=== PATIENT | female | born 1955 | race Caucasian/White ===

== ENCOUNTER 2019-10-31 07:03 | Observation (INO) | payer OTHER, MEDICARE ==
[2019-10-31 07:24] VITALS: BMI 20.8
--- NOTE | 2019-10-31 07:41 | PDOC ---
History of Present Illness - General Stated Complaint: AMS Time Seen by Provider: 10/31/19 07:09 History Source: Patient Exam Limitations: No Limitations - History of Present Illness Initial Comments: 10/31/19 07:21 64 yo female pmh HTN, HLD and GERD presents to the ED from home via EMS for AMS. EMS state pt reports last known well 10 pm last night prior to sleeping, pt found around 6 am in bed drooling, attempted to arouse, pt eyes opened but was not following commands or speaking. EMS on the scene report similar symptoms (vitals noted to be WNL at this time) that resolved after 5 min. At baseline pt is AOX3 and fully functional, noted to be AOX2 at this time (oriented to person and place, not time). Pt denies any focal neurological deficits, denies CHANDRA, LOC, changes in vision/speech, N/V, incontinence, tongue bitting NIH Stroke Scale - Last Known Well Date/Time & Onset Date Last Known Well: 10/30/19 Time Last Known Well: 22:00 - Initial Evaluation Level of consciousness: Alert Ask patient the month and their age: Answers one correctly Ask patient to open & close eyes; make fist and let go: Obeys both correctly Best gaze (horizontal eye movement): Normal Visual field testing: No visual field loss Facial paresis (Show teeth/raise eyebrows/close eyes tight): Normal symmetrical movement Motor Function: Left Arm: Normal Motor Function: Right Arm: Normal (extends arm 90 (or 45) degrees for 10 seconds without drift Motor Function: Left Leg: Normal (extends leg 30 degrees for 5 seconds without drift) Motor Function: Right Leg: Normal (extends leg 30 degrees for 5 seconds without drift) Limb Ataxia: No ataxia Sensory(Use pinprick test arms,legs,trunk,face/side to side): Normal Best language (Describe picture, name items, read sentences): No Aphasia Dysarthria (read several words): Normal articulation Extinction and Inattention: No abnormality - Total Score NIH Stroke Scale Score: 1 Past History - Medical History Allergies/Adverse Reactions: Allergies Allergy/AdvReac Type Severity Reaction Status Date / Time No Known Allergies Allergy Unverified 06/01/12 10:20 Home Medications: Ambulatory Orders Metoprolol Succinate 25 mg PO DAILY 10/31/19 Omeprazole 40 mg PO BID 10/31/19 Rosuvastatin [Crestor -] 5 mg PO HS 10/31/19 Anemia: No COPD: No Diabetes: No Disorders: No - Psycho-Social/Smoking History Smoking Status: No Smoking History: Never smoked Number of Cigarettes Smoked Daily: 0 Review of Systems - Review of Systems Constitutional: No: Chills, Fever Respiratory: No: Shortness of Breath Cardiac (ROS): No: Chest Pain ABD/GI: No: Constipated, Diarrhea, Nausea, Vomiting : No: Dysuria, Discharge, Frequency, Flank Pain Neurological: Yes: Weakness (generalized). No: Headache, Numbness, Paresthesia *Physical Exam - Physical Exam General Appearance: Yes: Nourished, Appropriately Dressed. No: Apparent Distress HEENT: positive: EOMI, GISELA, Normal ENT Inspection Neck: positive: Supple. negative: Carotid bruit Respiratory/Chest: positive: Lungs Clear. negative: Respiratory Distress, Accessory Muscle Use, Rapid RR, Crackles, Rales, Rhonchi, Stridor, Wheezing Cardiovascular: positive: Regular Rhythm, Regular Rate, S1, S2. negative: Edema, JVD, Murmur Vascular Pulses: Dorsalis-Pedis (R): 4+, Doralis-Pedis (L): 4+ Gastrointestinal/Abdominal: positive: Flat, Soft. negative: Pulsatile Mass Musculoskeletal: negative: CVA Tenderness Extremity: positive: Normal Capillary Refill, Normal Inspection, Normal Range of Motion Integumentary: positive: Normal Color, Dry, Warm Neurologic: positive: card brusher II-XII NML intact, Alert, Normal Mood/Affect, Normal Response, Motor Strength 5/5. negative: Fully Oriented (AOX2, baseline AOX3), Facial Droop, Sensory Deficit, Confused, Disoriented ED Treatment Course - LABORATORY CBC & Chemistry Diagram: 10/31/19 07:18 10/31/19 07:18 - RADIOLOGY Radiology Studies Ordered: Category Date Time Status HEAD CT WITHOUT CONTRAST [CT] Stat CT Scan 10/31/19 07:10 Ordered Medical Decision Making - Medical Decision Making 10/31/19 09:33 64 yo female pmh HTN, HLD and GERD presents to the ED from home via EMS for AMS. EMS state pt reports last known well 10 pm last night prior to sleeping, pt found around 6 am in bed drooling, attempted to arouse, pt eyes opened but was not following commands or speaking. EMS on the scene report similar symptoms (vitals noted to be WNL at this time) that resolved after 5 min. At baseline pt is AOX3 and fully functional, noted to be AOX2 at this time (oriented to person and place, not time). Pt denies any focal neurological deficits, denies CHANDRA, LOC, changes in vision/speech, N/V, incontinence, tongue bitting Vitals stable Pt outside the window on arrival for TPA No focal deficits. EKG and finger stick done immediately, pt then taken straight to CT Neg CT head labs unremarkable Due to likely first seizure vs stroke, pt requires admission for Neuro eval and continued monitoring Dr. Villagran aware, pt accepted for admission Discharge - Discharge Information Problems reviewed: Yes Clinical Impression/Diagnosis: Seizure Syncope Qualifiers: Syncope type: unspecified Qualified Code(s): R55 - Syncope and collapse Condition: Good Disposition: HOME - Admission Yes - Follow up/Referral - Patient Discharge Instructions - Post Discharge Activity
[2019-10-31 07:44] LABS: BASO % 0.5 % (0-2.0); HEMATOCRIT 38.2 % (32.4-45.2); LYMPH % 34.4 % (8-40); MCHC 33.9 g/dl (32.0-36.0); MEAN CELL VOLUME 85.6 fl (80-96); MEAN PLT VOLUME 8.6 fl (7.5-11.1); MONO % 7.7 % (3.8-10.2); NEUT % 56.4 % (42.8-82.8); PLATELET COUNT 204 K/MM3 (134-434); RBC 4.46 M/mm3 (3.60-5.2); RDW 13.4 % (11.6-15.6); WHITE BLOOD COUNT 5.5 K/mm3 (4.0-10.0)
[2019-10-31 08:15] LABS: ALBUMIN 4.1 g/dl (3.4-5.0); ALK PHOS 85 U/L (45-117); ANION GAP 9 MMOL/L (8-16); BILIRUBIN,TOTAL 0.5 mg/dL (0.2-1); BLOOD UREA NITROGEN 17.8 mg/dL (7-18); CALCIUM 9.1 mg/dL (8.5-10.1); CHLORIDE 107 mmol/L (98-107); CO2 25 mmol/L (21-32); CREATININE 0.7 mg/dL (0.55-1.3); GLUCOSE,RANDOM 120 mg/dL (74-106); POTASSIUM 4.1 mmol/L (3.5-5.1); SGOT/AST 30 U/L (15-37); SGPT/ALT 36 U/L (13-61); SODIUM 141 mmol/L (136-145)
[2019-10-31 08:26] LABS: INR 0.93 (0.83-1.09)
[2019-10-31 08:29] LABS: ACTIVATED PTT 25.4 SECONDS (25.2-36.5)
--- NOTE | 2019-10-31 08:53 | PDOC ---
Attending Attestation - Resident Resident Name: ShoshanaIno - ED Attending Attestation I have performed the following: I have examined & evaluated the patient, The case was reviewed & discussed with the resident, I agree w/resident's findings & plan, Exceptions are as noted - HPI HPI: 10/31/19 08:49 64-year-old female history of hypertension here today complaining of altered mental status. Patient is unable to recall the events of the last 24 hours therefore history is provided by her per her the patient was last normal last evening around 10 PM when she went to bed this a.m. they were in bed and she was noted to be shaking did have some eyes rolling and grunting noise he rolled over to see what was going on and found that she was then unarousable and very confused and there was no noted incontinence of stool or urine. Called EMS on EMS arrival patient was also found to be somewhat confused and lethargic at this time the patient is awake alert and speaking states she does not remember any of the events mentioned. Denies any history of heavy alcohol use no new medications no drug use no recent fevers chills no urinary complaints no abdominal pain no nausea no vomiting no headaches no other symptoms no previous history of prior seizures or stroke and no recent head trauma - Physicial Exam PE: 10/31/19 08:50 Patient is awake alert and oriented x3 faces are symmetric lungs are clear bilaterally heart is regular without murmurs rubs or gallops abdomen is soft and nontender extremities are warm and well perfused. Neurologically patient is awake and alert and oriented x3 strength is 5 out of 5 in all 4 extremities speech is clear she is able to recall her age and the date sensation is intact gait was not tested NIH stroke scale is currently 0 on my exam - Medical Decision Making 10/31/19 08:51 64-year-old female history of hypertension here today with possible seizure versus syncope and altered mental status. With some amnesia differential includes intracranial mass, bleed, CVA, infection such as UTI or pneumonia however the patient is afebrile. Electrolyte abnormality such as hyponatremia hypocalcemia is considered. Patient denies any toxicological causes for a potential seizure. Plan CBC CMP total CK troponin EKG CT head and chest x-ray as well as UA to rule out infection. CT head is unremarkable for any acute mass bleed or CVA. Will consult neurology for new onset likely seizure patient will be admitted for monitoring Heart Score/ECG Review #1 General ECG Interpretation: Sinus Rhythm, Normal Rate (93. no st elevation or depression), Normal Intervals, No acute ischemic changes Discharge - Discharge Information Problems reviewed: Yes Clinical Impression/Diagnosis: Seizure Syncope Qualifiers: Syncope type: unspecified Qualified Code(s): R55 - Syncope and collapse - Follow up/Referral - Patient Discharge Instructions - Post Discharge Activity
[2019-10-31 09:08] LABS: PH,URINE 5.5 (5.0-8.0); URINE APPEARANCE Clear; URINE BILIRUBIN Negative (NEGATIVE); URINE COLOR Yellow; URINE GLUCOSE (UA) Negative (NEGATIVE); URINE KETONE Negative (NEGATIVE); URINE LEUK ESTERASE Negative (NEGATIVE); URINE NITRITE Negative (NEGATIVE); URINE PROTEIN 1+ (NEGATIVE); URINE UROBILINOGEN 0.2 mg/dL (0.2-1.0)
--- NOTE | 2019-10-31 09:14 | EKG ---
Test Reason : Blood Pressure : / mmHG Vent. Rate : 093 BPM Atrial Rate : 093 BPM P-R Int : 142 ms QRS Dur : 078 ms QT Int : 350 ms P-R-T Axes : 068 039 066 degrees QTc Int : 435 ms NORMAL SINUS RHYTHM NONSPECIFIC ST ABNORMALITY ABNORMAL ECG WHEN COMPARED WITH ECG OF 21-JUN-2008 10:45, QT HAS LENGTHENED Confirmed by RADHA KAN MD ([id number]) on 10/31/2019 9:14:00 AM Referred By: Confirmed By:RADHA KAN MD
--- NOTE | 2019-10-31 12:03 | CON.CARD ---
Consult Consult Specialty:: Cardiology Referred by:: Emergency Medicine Reason for Consultation:: Altered mental status, r/o stroke vs seizure - History of Present Illness Chief Complaint: Altered mental status History of Present Illness: 64 yo female pmh HTN, HLD and GERD presents to the ED from home via EMS for AMS. EMS state pt reports last known well 10 pm last night prior to sleeping, pt found around 6 am in bed drooling, biting tongue, attempted to arouse, pt eyes opened but was not following commands or speaking, denies bowel or bladder incontinence. EMS on the scene report similar symptoms (vitals noted to be WNL at this time) that resolved after 5 min. At baseline pt is AOX3 and fully functional, noted to be AOX2 at this time (oriented to person and place, not time). Pt denies any focal neurological deficits, denies CHANDRA, LOC, changes in vision/speech, N/V, incontinence. 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: Yes: Migraine - Alcohol/Substance Use Hx Alcohol Use: No - Smoking History Smoking history: Never smoked Have you smoked in the past 12 months: No Aproximately how many cigarettes per day: 0 Home Medications - Allergies Allergies/Adverse Reactions: Allergies Allergy/AdvReac Type Severity Reaction Status Date / Time No Known Allergies Allergy Unverified 06/01/12 10:20 - Home Medications Home Medications: Ambulatory Orders Metoprolol Succinate 25 mg PO DAILY 10/31/19 Omeprazole 40 mg PO BID 10/31/19 Rosuvastatin [Crestor -] 5 mg PO HS 10/31/19 Review of Systems - Review of Systems Neurological: reports: Confusion Vital Signs: Vital Signs Temperature 98.5 F 10/31/19 07:20 Pulse Rate 88 10/31/19 07:20 Respiratory Rate 20 10/31/19 07:20 Blood Pressure 139/81 10/31/19 07:20 O2 Sat by Pulse Oximetry (%) 97 10/31/19 07:20 Constitutional: Yes: No Distress, Calm Neck: Yes: Supple Respiratory: Yes: Regular, CTA Bilaterally Gastrointestinal: Yes: Normal Bowel Sounds, Soft Cardiovascular: Yes: Regular Rate and Rhythm JVD: No Carotid Bruit: No Heart Sounds: Yes: S1, S2 Edema: No - Other Data Labs, Other Data: CBC, BMP 10/31/19 07:18 10/31/19 07:18 INR, PTT INR 0.93 (0.83-1.09) 10/31/19 07:18 Troponin, BNP 10/31/19 07:18 Troponin I < 0.02 Troponin, BNP 10/31/19 07:18 Troponin I < 0.02 NSR @ 93 Ejection Fraction %: LVEF > or = 40 % Imaging - Results Cat Scan: Report Reviewed (HCT: No acute changes) Problem List - Problems (1) Mitral valve prolapse Code(s): I34.1 - NONRHEUMATIC MITRAL (VALVE) PROLAPSE (2) Hyperlipidemia Code(s): E78.5 - HYPERLIPIDEMIA, UNSPECIFIED Qualifiers: Hyperlipidemia type: pure hypercholesterolemia Qualified Code(s): E78.00 - Pure hypercholesterolemia, unspecified; E78.0 - Pure hypercholesterolemia (3) Seizure Code(s): R56.9 - UNSPECIFIED CONVULSIONS (4) Syncope Code(s): R55 - SYNCOPE AND COLLAPSE Qualifiers: Syncope type: unspecified Qualified Code(s): R55 - Syncope and collapse Assessment/Plan 1. AMS r/o acute stroke vs seizure 2. HTN 3. Hyperlipidemia 4. GERD 5. MVP syndrome P:1. Neuro input appreciated 2. Continue Toprol XL 12.5 qd, Crestor 5 qd 3. Thank you for consultative opportunity
--- NOTE | 2019-10-31 12:56 | CONSULT ---
Consult - text type - Consultation Consultation Note: Neurology History of Present Illness Stated Complaint: AMS - History of Present Illness 64 yo female pmh HTN, HLD and GERD presents to the ED from home via EMS for AMS. EMS state pt reported last known well 10 pm last night prior to sleeping, pt found around 6 am in bed drooling, attempted to arouse, pt eyes opened but was not following commands or speaking. EMS on the scene report similar symptoms (vitals noted to be WNL at this time) that resolved after 5 min. At baseline pt is AOX3 and fully functional, noted to be AOX2 at this time (oriented to person and place, not time). Pt denies any focal neurological deficits, denies CHANDRA, LOC, changes in vision/speech, N/V, incontinence, tongue bitting. Although CVA was a concern, symptoms suspicious for seizure-like event. Patient does not have any prior history of seizures, unlikely new onset to occur now. During my evaluation she was completely at baseline and normal without any cognitive difficulties. was with her at bedside and confirm this as well. Noncontrast head CT reviewed and discussed in detail and without any acute changes. patient admitted for further observation and if no events overnight, then can be discharged in the morning, can follow-up with me in the office (sees Dr. Engel in same office). Past History - Medical History Allergies/Adverse Reactions: Allergies Allergy/AdvReac Type Severity Reaction Status Date / Time No Known Allergies Allergy Unverified 06/01/12 10:20 Home Medications: Ambulatory Orders Metoprolol Succinate 25 mg PO DAILY 10/31/19 Omeprazole 40 mg PO BID 10/31/19 Rosuvastatin [Crestor -] 5 mg PO HS 10/31/19 Anemia: No COPD: No Diabetes: No Disorders: No - Psycho-Social/Smoking History Smoking Status: No Smoking History: Never smoked Number of Cigarettes Smoked Daily: 0 Review of Systems - Review of Systems Constitutional: No: Chills, Fever Respiratory: No: Shortness of Breath Cardiac (ROS): No: Chest Pain ABD/GI: No: Constipated, Diarrhea, Nausea, Vomiting : No: Dysuria, Discharge, Frequency, Flank Pain Neurological: Yes: Weakness (generalized). No: Headache, Numbness, Paresthesia *Physical Exam Vital Signs Period Temp Pulse Resp BP Sys/Collins Pulse Ox Last 24 Hr 98.5 F-98.7 F 76-88 18-20 132-139/81-88 97-100 - Physical Exam General Appearance: Yes: Nourished, Appropriately Dressed. No: Apparent Distress HEENT: positive: EOMI, GISELA, Normal ENT Inspection Neck: positive: Supple. negative: Carotid bruit Respiratory/Chest: positive: Lungs Clear. negative: Respiratory Distress, Accessory Muscle Use, Rapid RR, Crackles, Rales, Rhonchi, Stridor, Wheezing Cardiovascular: positive: Regular Rhythm, Regular Rate, S1, S2. negative: Edema, JVD, Murmur Vascular Pulses: Dorsalis-Pedis (R): 4+, Doralis-Pedis (L): 4+ Gastrointestinal/Abdominal: positive: Flat, Soft. negative: Pulsatile Mass Musculoskeletal: negative: CVA Tenderness Extremity: positive: Normal Capillary Refill, Normal Inspection, Normal Range of Motion Integumentary: positive: Normal Color, Dry, Warm Neurologic: positive: family independence case manager II-XII NML intact, Alert, Normal Mood/Affect, Normal Response, Motor Strength 5/5. negative: Fully Oriented (AOX2, baseline AOX3), Facial Droop, Sensory Deficit, Confused, Disoriented CBCD WBC 5.5 K/mm3 (4.0-10.0) 10/31/19 07:18 RBC 4.46 M/mm3 (3.60-5.2) 10/31/19 07:18 Hgb 13.0 GM/dL (10.7-15.3) 10/31/19 07:18 Hct 38.2 % (32.4-45.2) 10/31/19 07:18 MCV 85.6 fl (80-96) 10/31/19 07:18 MCHC 33.9 g/dl (32.0-36.0) 10/31/19 07:18 RDW 13.4 % (11.6-15.6) 10/31/19 07:18 Plt Count 204 K/MM3 (134-434) 10/31/19 07:18 MPV 8.6 fl (7.5-11.1) 10/31/19 07:18 CMP Sodium 141 mmol/L (136-145) 10/31/19 07:18 Potassium 4.1 mmol/L (3.5-5.1) 10/31/19 07:18 Chloride 107 mmol/L (98-107) 10/31/19 07:18 Carbon Dioxide 25 mmol/L (21-32) 10/31/19 07:18 Anion Gap 9 MMOL/L (8-16) 10/31/19 07:18 BUN 17.8 mg/dL (7-18) 10/31/19 07:18 Creatinine 0.7 mg/dL (0.55-1.3) 10/31/19 07:18 Calcium 9.1 mg/dL (8.5-10.1) 10/31/19 07:18 Total Bilirubin 0.5 mg/dL (0.2-1) 10/31/19 07:18 AST 30 U/L (15-37) 10/31/19 07:18 ALT 36 U/L (13-61) 10/31/19 07:18 Alkaline Phosphatase 85 U/L (45-117) 10/31/19 07:18 Total Protein 7.0 g/dl (6.4-8.2) 10/31/19 07:18 Albumin 4.1 g/dl (3.4-5.0) 10/31/19 07:18 Medical Decision Making 64 yo female pmh HTN, HLD and GERD presents to the ED from home via EMS for AMS. EMS state pt reported last known well 10 pm last night prior to sleeping, pt found around 6 am in bed drooling, attempted to arouse, pt eyes opened but was not following commands or speaking. EMS on the scene report similar symptoms (vitals noted to be WNL at this time) that resolved after 5 min. At baseline pt is AOX3 and fully functional, noted to be AOX2 at this time (oriented to person and place, not time). Pt denies any focal neurological deficits, denies CHANDRA, LOC, changes in vision/speech, N/V, incontinence, tongue bitting. Although CVA was a concern, symptoms suspicious for seizure-like event. Patient does not have any prior history of seizures, unlikely new onset to occur now. During my evaluation she was completely at baseline and normal without any cognitive difficulties. was with her at bedside and confirm this as well. Noncontrast head CT reviewed and discussed in detail and without any acute changes. patient admitted for further observation and if no events overnight, then can be discharged in the morning, can follow-up with me in the office (sees Dr. Engel in same office). Neurologically at baseline, neurologically cleared for discharge in a.m. if no other events overnight. Does not require seizure medication for one-time event significant stress at this time possibly etiology to her event. Increased hydration also recommended.
[2019-10-31] MEDS ORDERED: SODIUM CHLORIDE 1,000 ML IV STA (14:52)
--- NOTE | 2019-10-31 15:24 | HP ---
CHIEF COMPLAINT: s/p seizure-like episode PCP: Dr Engel HISTORY OF PRESENT ILLNESS: 64 F h/o RLS, vertigo, HTN, HLD, migraine headaches presents to ED after an episode of unresponsiveness, and tongue biting earlier this morning. Patient endorses going to bed at 10pm in her [facility], until her tried to wake her up at 6AM when she was unresponsive, with jerking head mvoements, foaming at the mouth and tongue biting, EMS arrived and witnessed the same for 5 more mins. Patient's mother has Parkinson's otherwise pt. denies personal history of any neuro-degenerative diseases. Denies drug/etoh use. Denies prior episodes. Endorses vivid dreams, some snoring (reported by ), had HSAT years ago but denied h/o MEMO/RBD/sleep walking/talking/narcolepsy. Denies sleep paralysis sx. Endorses great amount of stress at home, now retired because her company shut down, now she's taking care of her and grandkids and she endorses it has been very stressful for her, Denies SI/HI/AH/VH/depression. Denies COVID symptoms. ER course was notable for: (1) CT head neg. for acute pathology (2) Labs unremarkable (3) Recent Travel: denies PAST MEDICAL HISTORY: as above PAST SURGICAL HISTORY: denies Social History: denies x3 Allergies No Known Allergies Allergy (Unverified 06/01/12 10:20) HOME MEDICATIONS: Home Medications Medication Instructions Recorded Metoprolol Succinate 25 mg PO DAILY 10/31/19 Omeprazole 40 mg PO BID 10/31/19 Rosuvastatin [Crestor -] 5 mg PO HS 10/31/19 PHYSICAL EXAMINATION Vital Signs - 24 hr 10/31/19 10/31/19 07:20 12:22 Temperature 98.5 F 98.7 F Pulse Rate 88 Pulse Rate [ 76 Left Radial] Respiratory 20 18 Rate Blood Pressure 139/81 Blood Pressure 132/88 [Right Arm] O2 Sat by Pulse 97 100 Oximetry (%) GA Speaks in full sentences, AAOx3, NAD, ambulatory w/ stable gait HEENT NC/aT, EOMI, neck supple, dry MM, no JVD, mild R tongue laceration no bleeding Chest CTAB, nop crackles or wheezing CVS S1, S2+, RRR, no m/r/g Abd Soft, thin, NT, ND, BS+ Ext No LE edema, no calf tenderness Neuro no resting tremor, Cn2-12 grossly intact, normal mood and affect Laboratory Results - last 24 hr 10/31/19 10/31/19 10/31/19 07:18 07:18 07:18 WBC 5.5 RBC 4.46 Hgb 13.0 Hct 38.2 MCV 85.6 MCH 29.0 MCHC 33.9 RDW 13.4 Plt Count 204 MPV 8.6 Absolute Neuts (auto) 3.1 Neutrophils % 56.4 Lymphocytes % 34.4 Monocytes % 7.7 Eosinophils % 1.0 Basophils % 0.5 Nucleated RBC % 0 PT with INR 11.00 INR 0.93 PTT (Actin FS) 25.4 Sodium Potassium Chloride Carbon Dioxide Anion Gap BUN Creatinine Est GFR (CKD-EPI)AfAm Est GFR (CKD-EPI)NonAf POC Glucometer Random Glucose Calcium Total Bilirubin AST ALT Alkaline Phosphatase Creatine Kinase Troponin I Total Protein Albumin Triglycerides 73 Cholesterol 150 Total LDL Cholesterol 57 HDL Cholesterol 85 H Urine Color Urine Appearance Urine pH Ur Specific [place] Urine Protein Urine Glucose (UA) Urine Ketones Urine Blood Urine Nitrite Urine Bilirubin Urine Urobilinogen Ur Leukocyte Esterase 10/31/19 10/31/19 10/31/19 07:18 07:19 08:27 WBC RBC Hgb Hct MCV MCH MCHC RDW Plt Count MPV Absolute Neuts (auto) Neutrophils % Lymphocytes % Monocytes % Eosinophils % Basophils % Nucleated RBC % PT with INR INR PTT (Actin FS) Sodium 141 Potassium 4.1 Chloride 107 Carbon Dioxide 25 Anion Gap 9 BUN 17.8 Creatinine 0.7 Est GFR (CKD-EPI)AfAm 105.38 Est GFR (CKD-EPI)NonAf 90.92 POC Glucometer 116 Random Glucose 120 H Calcium 9.1 Total Bilirubin 0.5 AST 30 ALT 36 Alkaline Phosphatase 85 Creatine Kinase 98 Troponin I < 0.02 Total Protein 7.0 Albumin 4.1 Triglycerides Cholesterol Total LDL Cholesterol HDL Cholesterol Urine Color Yellow Urine Appearance Clear Urine pH 5.5 Ur Specific [place] >= 1.030 Urine Protein 1+ H Urine Glucose (UA) Negative Urine Ketones Negative Urine Blood 1+ H Urine Nitrite Negative Urine Bilirubin Negative Urine Urobilinogen 0.2 Ur Leukocyte Esterase Negative Home Medications Medication Instructions Recorded Metoprolol Succinate 25 mg PO DAILY 10/31/19 Omeprazole 40 mg PO BID 10/31/19 Rosuvastatin [Crestor -] 5 mg PO HS 10/31/19 Current Medications Generic Name Dose Route Start Last Admin Trade Name Freq PRN Reason Stop Dose Admin Sodium Chloride 1,000 mls @ 1,000 mls/hr 10/31/19 14:52 Normal Saline - IV 10/31/19 15:51 ASDIR STA ASSESSMENT/PLAN: 64 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) ?confusional arousal/MEMO/RBD HTN HLD BPPV RLS Migraine headaches Anxiety Plan: Obtain MRI of brain to r/o neurodegenerative process (strong family h/o Parkinson's), ?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 - New Patient This patient is new to me today: Yes Date on this admission: 10/31/19 - Critical Care Critical Care patient: No
[2019-10-31] MEDS ORDERED: SODIUM CHLORIDE 0.9% 1000 ML INFUS.BAG IV ONE (16:36)
[2019-10-31] MEDS ORDERED: PNEUMOC 13-VAL CONJ-DIP CRM/PF 0.5 ML DISP.SYRIN IM ONE (17:18)
[2019-10-31 20:05] LABS: COCAINE, UR NEGATIVE ng/ml (CUTOFF=300); METHADONE, UR NEGATIVE ng/ml (CUTOFF=300); OPIATES, URI NEGATIVE ng/ml (CUTOFF=300); PHENCYCLIDINE,URINE NEGATIVE ng/ml (CUTOFF=25); URINE AMPHETAMINES NEGATIVE ng/ml (CUTOFF=500); URINE BARBITURATES NEGATIVE ng/ml (CUTOFF=200); URINE BENZODIAZEPINES NEGATIVE ng/ml (CUTOFF=200)
[2019-10-31] MEDS ORDERED: SODIUM CHLORIDE 1,000 ML IV SCH (20:30)
--- NOTE | 2019-11-01 06:50 | PN ---
Progress Note (short form) - Note Progress Note: Chief Complaint: Events noted, notes reviewed, resting in bed, does not have any recollection of yesterday's events/altered mental status, denies any chest discomfort, denies any dyspnea History of Present Illness: Seen and examined on telemetry. Events noted, notes reviewed, resting in bed, does not have any recollection of yesterday's events/altered mental status, denies any chest discomfort, denies any dyspnea Patient stated that on Thursday she was stripping paint of a railing with utilization of a chemical to assist with paint stripping, patient stated that it was a hot day and she was not adequately hydrated- possible contribution to the above-noted clinical presentation Medications: Current Medications Generic Name Dose Route Start Last Admin Trade Name Nehemias PRN Reason Stop Dose Admin Sodium Chloride 1,000 mls @ 83 mls/hr 10/31/19 20:30 11/01/19 05:27 Normal Saline - IV 83 mls/hr ASDIR JORGE Administration Pneumococcal 13-Valent Conj Vacc 0.5 ml 10/31/19 17:18 Prevnar 13 Syringe - IM 10/31/19 17:19 .ONCE ONE Review of Systems - Review of Systems Constitutional: denies: Fever or Chills Cardiovascular: As noted above Respiratory: denies: Cough or Sputum Production Gastrointestinal: denies: Nausea, Vomiting, Diarrhea, Constipation, Abdominal Pain Neurological: denies: Headaches Vital Signs: Last Vital Signs Temp Pulse Resp BP Pulse Ox 98.1 F 66 18 135/66 100 11/01/19 05:00 11/01/19 05:00 11/01/19 05:00 11/01/19 05:00 10/31/19 17:44 Intake & Output 10/29/19 10/30/19 10/31/19 11/01/19 23:59 23:59 23:59 23:59 Intake Total 744 Balance 744 Weight 114 lb Neck: Supple Negative JVD No Bruit Respiratory: Clear to auscultation and percussion Cardiovascular: S1 S2 Regular Rate and Rhythm Gastrointestinal: Soft Benign Normal Bowel Sounds Ext: Negative Edema Labs: CBC, BMP 10/31/19 07:18 10/31/19 07:18 Hepatic Panel Total Bilirubin 0.5 mg/dL (0.2-1) 10/31/19 07:18 AST 30 U/L (15-37) 10/31/19 07:18 ALT 36 U/L (13-61) 10/31/19 07:18 Alkaline Phosphatase 85 U/L (45-117) 10/31/19 07:18 Albumin 4.1 g/dl (3.4-5.0) 10/31/19 07:18 INR, PTT INR 0.93 (0.83-1.09) 10/31/19 07:18 Assessment/Plan ASSESSMENT: 1. Altered mental status, clinically resolved etiology of which is unclear- no evidence of acute stroke, differential diagnosis includes seizure disorder, clinically cannot exclude profound hypotension considering the above-noted circumstances 2. History of hypertension/hypertensive cardiovascular disease 3. Hypercholesterolemia 4. History of mitral of redundancy/prolapse syndrome PLAN: 1. No additional cardiovascular evaluation/intervention is indicated at this point 2. Recommend continuation of Toprol-XL therapy/outpatient re-initiation 3. Recommend continuation of Crestor therapy Patient can be discharged home from the cardiovascular point of view and follow- up in our office with Dr. Ahsan Lee M.D.
[2019-11-01 09:17] VITALS: BP 139/73; PULSE 72; TEMP 97.8
--- NOTE | 2019-11-01 09:53 | PN ---
Progress Note (short form) - Note Progress Note: Neurology History of Present Illness Stated Complaint: AMS 64 yo female pmh HTN, HLD and GERD presents to the ED from home via EMS for AMS. EMS state pt reported last known well 10 pm last night prior to sleeping, pt found around 6 am in bed drooling, attempted to arouse, pt eyes opened but was not following commands or speaking. EMS on the scene report similar symptoms (vitals noted to be WNL at this time) that resolved after 5 min. At baseline pt is AOX3 and fully functional, noted to be AOX2 at this time (oriented to person and place, not time). Pt denies any focal neurological deficits, denies CHANDRA, LOC, changes in vision/speech, N/V, incontinence, tongue bitting. Although CVA was a concern, symptoms suspicious for seizure-like event. Patient does not have any prior history of seizures, unlikely new onset to occur now. During my evaluation she was completely at baseline and normal without any cognitive difficulties. was with her at bedside and confirm this as well. Noncontrast head CT reviewed and discussed in detail and without any acute changes. MRI brain completed as well, no signficant abnormalities. Carotid doppler without high grade stenosis. Cards note reviewed. Active Medications Sodium Chloride (Normal Saline -) 1,000 mls @ 83 mls/hr IV ASDIR JORGE Last Admin: 11/01/19 05:27 Dose: 83 mls/hr Documented by: Pneumococcal 13-Valent Conj Vacc (Prevnar 13 Syringe -) 0.5 ml IM .ONCE ONE Stop: 10/31/19 17:19 Vital Signs Period Temp Pulse Resp BP Sys/Collins Pulse Ox Last 24 Hr 97.8 F-98.7 F 66-78 18-20 130-156/66-110 100-100 CBCD WBC 5.5 K/mm3 (4.0-10.0) 10/31/19 07:18 RBC 4.46 M/mm3 (3.60-5.2) 10/31/19 07:18 Hgb 13.0 GM/dL (10.7-15.3) 10/31/19 07:18 Hct 38.2 % (32.4-45.2) 10/31/19 07:18 MCV 85.6 fl (80-96) 10/31/19 07:18 MCHC 33.9 g/dl (32.0-36.0) 10/31/19 07:18 RDW 13.4 % (11.6-15.6) 10/31/19 07:18 Plt Count 204 K/MM3 (134-434) 10/31/19 07:18 MPV 8.6 fl (7.5-11.1) 10/31/19 07:18 CMP Sodium 141 mmol/L (136-145) 10/31/19 07:18 Potassium 4.1 mmol/L (3.5-5.1) 10/31/19 07:18 Chloride 107 mmol/L (98-107) 10/31/19 07:18 Carbon Dioxide 25 mmol/L (21-32) 10/31/19 07:18 Anion Gap 9 MMOL/L (8-16) 10/31/19 07:18 BUN 17.8 mg/dL (7-18) 10/31/19 07:18 Creatinine 0.7 mg/dL (0.55-1.3) 10/31/19 07:18 Calcium 9.1 mg/dL (8.5-10.1) 10/31/19 07:18 Total Bilirubin 0.5 mg/dL (0.2-1) 10/31/19 07:18 AST 30 U/L (15-37) 10/31/19 07:18 ALT 36 U/L (13-61) 10/31/19 07:18 Alkaline Phosphatase 85 U/L (45-117) 10/31/19 07:18 Total Protein 7.0 g/dl (6.4-8.2) 10/31/19 07:18 Albumin 4.1 g/dl (3.4-5.0) 10/31/19 07:18 Medical Decision Making 64 yo female pmh HTN, HLD and GERD presents to the ED from home via EMS for AMS. EMS state pt reported last known well 10 pm last night prior to sleeping, pt found around 6 am in bed drooling, attempted to arouse, pt eyes opened but was not following commands or speaking. EMS on the scene report similar symptoms (vitals noted to be WNL at this time) that resolved after 5 min. At baseline pt is AOX3 and fully functional, noted to be AOX2 at this time (oriented to person and place, not time). Pt denies any focal neurological deficits, denies CHANDRA, LOC, changes in vision/speech, N/V, incontinence, tongue bitting. Although CVA was a concern, symptoms suspicious for seizure-like event. Patient does not have any prior history of seizures, unlikely new onset to occur now. During my evaluation she was completely at baseline and normal without any cognitive difficulties. was with her at bedside and confirm this as well. Noncontrast head CT reviewed and discussed in detail and without any acute changes. MRI brain completed as well, no signficant abnormalities. Carotid doppler without high grade stenosis. Cards note reviewed. Does not require seizure medication for one-time event significant stress at this time possibly etiology to her event. Increased hydration also recommended. Outpatient follow up.
--- NOTE | 2019-11-04 09:08 | DS ---
Physical Exam: SUBJECTIVE: Patient seen and examined OBJECTIVE: PHYSICAL EXAM GENERAL: The patient is awake, alert, and fully oriented, in no acute distress. HEAD: Normal with no signs of trauma. EYES: PERRL, extraocular movements intact, sclera anicteric, conjunctiva clear. ENT: Ears normal, nares patent, oropharynx clear without exudates, moist mucous membranes. NECK: Trachea midline, full range of motion, supple. LUNGS: Breath sounds equal, clear to auscultation bilaterally, no wheezes, no crackles, no accessory muscle use. HEART: Regular rate and rhythm, S1, S2 without murmur, rub or gallop. ABDOMEN: Soft, nontender, nondistended, normoactive bowel sounds, no guarding, no rebound, no hepatosplenomegaly, no masses. EXTREMITIES: 2+ pulses, warm, well-perfused, no edema. NEUROLOGICAL: Cranial nerves II through XII grossly intact. Normal speech, gait not observed. PSYCH: Normal mood, normal affect. SKIN: Warm, dry, normal turgor, no rashes or lesions noted. LABS HOSPITAL COURSE: Date of Admission:10/31/19 Date of Discharge: 11/04/19 Minutes to complete discharge: 45 Discharge Summary Problems reviewed: Yes Reason For Visit: SEIZURE,SYNCOPE Hospital Course: 64 F h/o RLS, vertigo, HTN, HLD, migraine headaches presents to ED after an episode of unresponsiveness, and tongue biting earlier this morning. Patient endorses going to bed at 10pm in her [facility], until her tried to wake her up at 6AM when she was unresponsive, with jerking head mvoements, foaming at the mouth and tongue biting, EMS arrived and witnessed the same for 5 more mins. Patient was admitted to Medicine service for evaluation of possible seizure disorder, underwent MRI of brain unremarkable, Carotid US showed no stenosis. Patient did not have any further episodes or significant findings during inpatient stay. Was cleared by Neurology and Cardiology for DC and outpatient workup. Condition: Good - Instructions Diet, Activity, Other Instructions: You were in the hospital because of a seizure-like episode. You should follow up with your primary care doctor and Dr. Villagran, neurology. You were not started on any new medications. If you have worsening symptoms, return to the emergency department. Referrals: Viktor Villagran MD [Staff Physician] - Gian Engel MD [Primary Care Provider] - Disposition: HOME - Home Medications Comprehensive Discharge Medication List: Ambulatory Orders Metoprolol Succinate 25 mg PO DAILY 10/31/19 Omeprazole 40 mg PO BID 10/31/19 Rosuvastatin [Crestor -] 5 mg PO HS 10/31/19 This patient is new to me today: No Emergency Visit: Yes ED Registration Date: 10/31/19 Care time: The patient presented to the Emergency Department on the above date and was hospitalized for further evaluation of their emergent condition. Critical Care patient: No - Discharge Referral Referred to [facility] Med [facility] No
== END 2019-11-01 12:00 | disposition home or self-care (01) ==
LOC: JER 07:03 → JERBED 09:38 → INTOOBSV 09:38 → UNDOADMOB 09:38 → JERBED 11:03 → J4W 19:35 → JERBED 19:35
PROC: 3E0337Z Introduction of Electrolytic and Water Balance Substance into Peripheral Vein, Percutaneous Approach (ICD-10-PCS; principal; 2019-10-31)
DX: R55 Syncope and collapse (principal); R56.9 Unspecified convulsions; I34.1 Nonrheumatic mitral (valve) prolapse; E78.00 Pure hypercholesterolemia, unspecified; E78.5 Hyperlipidemia, unspecified; K21.9 Gastro-esophageal reflux disease without esophagitis; I10 Essential (primary) hypertension; G47.33 Obstructive sleep apnea (adult) (pediatric); R53.1 Weakness; F41.9 Anxiety disorder, unspecified; G43.909 Migraine, unspecified, not intractable, without status migrainosus
CPT/HCPCS: 36415; 70450-TC; 70551-TC; 80053; 80061; 80307; 81003; 82550; 82607; 82962; 83036; 83721; 84439; 84443; 84484; 85025; 85610; 85730; 86780; 93005; 93010; 93880-TC; 96360; 99285-25; G0378; U0003

== ENCOUNTER → 2020-11-15 | Day surgery (SDC) | payer OTHER, MEDICARE | END | disposition home or self-care (01) | LOC: FRADUS-SUR 12:30 | PROVIDERS: ATTEND Surgery | PROC: 0HBT3ZX Excision of Right Breast, Percutaneous Approach, Diagnostic (ICD-10-PCS; principal; 2020-11-15) | DX: N60.31 Fibrosclerosis of right breast (principal); N64.89 Other specified disorders of breast; N63.11 Unspecified lump in the right breast, upper outer quadrant | CPT/HCPCS: 19085; 77065-TC; 88305-TC; A4648; A9579; C1887 ==

== ENCOUNTER 2024-02-08 10:26 | Emergency (ER) | payer OTHER, MEDICARE ==
[2024-02-08] MEDS ORDERED: ACETAMINOPHEN INJECTION 100 ML ONE (10:52)
[2024-02-08] MEDS ORDERED: METOCLOPRAMIDE HCL INJECTION 10 MG/2 ML VIAL ONE (10:52)
[2024-02-08 10:58] VITALS: BP 136/73; RESP 18
[2024-02-08 11:19] VITALS: PULSE 66; TEMP 98.6; BMI 21.0
[2024-02-08] MEDS: LACTATED RINGERS SOLUTION 1000 ML INFUS.BAG IV ONE (11:34)
[2024-02-08] MEDS: ACETAMINOPHEN 1000 MG/100 ML BAG IVPB ONE (11:34)
[2024-02-08] MEDS: METOCLOPRAMIDE HCL INJECTION 10 MG/2 ML VIAL IVPUSH ONE (11:35)
[2024-02-08 11:56] LABS: BASO % 0.4 % (0-2.0); EOS % 0.8 % (0-4.5); HEMATOCRIT 40.2 % (32.4-45.2); HEMOGLOBIN 13.4 GM/dL (10.7-15.3); LYMPH % 21.8 % (8-40); MCH 29.2 pg (25.7-33.7); MCHC 33.5 g/dl (32.0-36.0); MEAN CELL VOLUME 87.3 fl (80-96); MEAN PLT VOLUME 7.8 fl (7.5-11.1); MONO % 7.8 % (3.8-10.2); NEUT % 69.2 % (42.8-82.8); PLATELET COUNT 203 10^3/uL (134-434); RDW 13.6 % (11.6-15.6)
[2024-02-08 12:15] LABS: INR 0.97 (0.83-1.09)
[2024-02-08 12:17] LABS: ACTIVATED PTT 33.9 SECONDS (25.2-36.5)
[2024-02-08 12:21] LABS: POTASSIUM 4.4 mmol/L (3.5-5.1)
[2024-02-08 12:24] LABS: ALBUMIN 3.8 g/dl (3.4-5.0); BLOOD UREA NITROGEN 11.8 mg/dL (7-18); CALCIUM 8.8 mg/dL (8.5-10.1); MAGNESIUM 2.4 mg/dL (1.8-2.4)
[2024-02-08 12:28] LABS: CREATININE 0.7 mg/dL (0.55-1.3)
[2024-02-08 12:30] LABS: BILIRUBIN,TOTAL 0.5 mg/dL (0.2-1); TOT PROT 7.1 g/dl (6.4-8.2)
[2024-02-08] MEDS ORDERED: KETOROLAC TROMETHAMINE 15 MG/ML VIAL ONE (13:17)
[2024-02-08] MEDS: KETOROLAC TROMETHAMINE 15 MG/ML VIAL IVPUSH ONE (13:22)
== END 2024-02-08 14:22 | disposition home or self-care (01) ==
LOC: JER 10:26
PROC: 3E033NZ Introduction of Analgesics, Hypnotics, Sedatives into Peripheral Vein, Percutaneous Approach (ICD-10-PCS; principal; 2024-02-08)
PROC: 3E0333Z Introduction of Anti-inflammatory into Peripheral Vein, Percutaneous Approach (ICD-10-PCS; 2024-02-08)
PROC: 3E033GC Introduction of Other Therapeutic Substance into Peripheral Vein, Percutaneous Approach (ICD-10-PCS; 2024-02-08)
DX: G43.909 Migraine, unspecified, not intractable, without status migrainosus (principal); R29.898 Other symptoms and signs involving the musculoskeletal system; H53.8 Other visual disturbances; Z20.822 Contact with and (suspected) exposure to COVID-19
CPT/HCPCS: 0241U-QW; 36415; 70450-TC; 80053; 83735; 84484; 85025; 85610; 85651; 85730; 86140; 86850; 86900; 86901; 93005; 93010; 99285-25; J0131